=== PATIENT | female | born 1945 | race Caucasian/White ===

== ENCOUNTER 2020-10-19 09:48 | Emergency (ER) | payer MEDICARE, OTHER ==
[~2020-10-19] VITALS: Ht 157.5 cm; Wt 60.3 kg
[~2020-10-19 09:48] MED LIST: ANUSOL HC SUPP1 SUPP PR; ASPIR 8181 MG PO; B12 PO; BENICAR 20 MG T20 MG PO; BYSTOLIC5 MG PO; CATAPRES 0.1MG0.1 MG PO; CLONAZEPAM0.25 MG PO; COMPAZINE 10MG10 MG PO; COQ-10100 MG PO; COQ1050 MG PO; CRESTOR20 MG PO; CYANOCOBAL1000 MCG/1 IM; DEXILANT60 MG PO; DRIZALMA SPRINK60 MG PO; ECOTRIN81 MG PO; FLOMAX0.4 MG PO; FLONASE 0.05% N16 GM; FORTEO 250250 MCG/ML SC; GRALISE1 EACH PO; KETOCONAZOLE TD; KLONOPIN TAB 00.5 MG PO; LEVOCETIRIZINE D5 MG PO; LEXAPRO20 MG PO; LINZESS290 MCG PO; LINZESS72 MCG PO; MEGESTROL400 MG/11 PO; MIRALAX17 GM PO; MOVANTIK25 MG PO; MUCINEX600 MG PO; PEPCID20 MG PO; POTASSIUM CHLO10 ME2 PO; POTASSIUM CITR10 MEQ PO; PROBIOTIC1 EAC1 PO; PROMETHAZINE HC25 M1 PO; QUETIAPINE FUMA25 MG PO; REXULTI PO; SOLIFENACIN SUCC5 MG PO; TIZANIDINE HCL2 MG PO; TYLENOL #3 PO; TYLENOL 500 MG500 MG PO; TYLENOL WITH C1 EACH PO; VESICARE5 MG PO; VITAMIN D PO; ZANAFLEX 4 MG TA4 MG GT; ZANTAC; ZOFRAN4 MG PO; ZYRTEC10 M3 PO; [UNRECOGNIZED DRUG - CODE] PO; [UNRECOGNIZED DRUG - OTHER]
[2020-10-19 11:00] LABS: HEMOGLOBIN 13.2 gm/dl (12.3-15.3); RED BLOOD COUNT 4.05 M/UL (4.00-5.10); WHITE BLOOD COUNT 5.5 K/UL (4.5-11.0)
[2020-10-19 11:37] LABS: BUN/CREATININE RATIO 40 (0-10)
[2020-10-19] MEDS ORDERED: AUGMENTIN 875-1 EACH PO (14:02)
== END 2020-10-19 15:14 | disposition home or self-care (01) ==
LOC: ER1 09:48
PROVIDERS: Urology
DX: U07.1 COVID-19 (principal); J02.0 Streptococcal pharyngitis; I10 Essential (primary) hypertension; Z85.3 Personal history of malignant neoplasm of breast; Z90.710 Acquired absence of both cervix and uterus
CPT/HCPCS: 71045; 80053; 82550; 82553; 83874; 84484; 85025; 87081; 87880; 93005; 99285; M0239

== ENCOUNTER → 2021-06-09 | Outpatient (CLI) | payer MEDICARE, OTHER ==
[~2021-06-09] MED LIST changes: +AUGMENTIN 875-1 EACH PO
== END ==
LOC: KOH-I 11:10
DX: M51.16 Intervertebral disc disorders with radiculopathy, lumbar region (principal); R10.9 Unspecified abdominal pain; N20.0 Calculus of kidney; K59.00 Constipation, unspecified; M51.17 Intervertebral disc disorders with radiculopathy, lumbosacral region
CPT/HCPCS: 72100; 74018

== ENCOUNTER → 2021-09-17 | Outpatient (CLI) | payer MEDICARE, OTHER ==
[2021-09-17 16:02] LABS: HEMOGLOBIN 13.6 gm/dl (12.3-15.3); RED BLOOD COUNT 4.34 M/UL (4.00-5.10); WHITE BLOOD COUNT 9.2 K/UL (4.5-11.0)
[2021-09-18 07:10] LABS: ALKALINE PHOSPHATASE, S 84 IU/L (44-121); ALT (SGPT) 9 IU/L (0-32); AST (SGOT) 19 IU/L (0-40); BILIRUBIN, TOTAL 0.5 mg/dL (0.0-1.2); BUN 13 mg/dL (8-27); BUN/CREATININE RATIO 14 (12-28); CALCIUM, SERUM 9.7 mg/dL (8.7-10.3); CARBON DIOXIDE, TOTAL 20 mmol/L (20-29); CHLORIDE, SERUM 100 mmol/L (96-106); CHOLESTEROL, TOTAL 206 mg/dL (100-199); CREATININE, SERUM 0.95 mg/dL (0.57-1.00); EGFR IF AFRICN AM 68 (>59); EGFR IF NONAFRICN AM 59 (>59); GLOBULIN, TOTAL 2.3 g/dL (1.5-4.5); GLUCOSE, SERUM 89 mg/dL (65-99); HDL CHOLESTEROL 91 mg/dL (>39); LDL CHOLESTEROL CALC 98 mg/dL (0-99); LDL/HDL RATIO 1.1 ratio (0.0-3.2); POTASSIUM, SERUM 4.7 mmol/L (3.5-5.2); PROTEIN, TOTAL, SERUM 6.8 g/dL (6.0-8.5); SODIUM, SERUM 135 mmol/L (134-144); T. CHOL/HDL RATIO 2.3 ratio (0.0-4.4); TRIGLYCERIDES 100 mg/dL (0-149)
[2021-09-18 08:13] LABS: CREATININE, URINE 96.3 mg/dL (Not Estab.); VITAMIN D, 25-HYDROXY 32.4 ng/mL (30.0-100.0)
[2021-09-18 09:13] LABS: SARS COV-2 SEMI-QUANT IGG >800.0 AU/mL (Neg <13.0); SARS COV-2 SPIKE AB INTERP Positive (.)
[2021-09-18 13:13] LABS: SARS COV-2 IGM AB Negative (Negative)
[2021-09-18 21:08] LABS: SARS COV-2 IGA AB Negative (Negative)
== END ==
LOC: LAB 14:27
PROVIDERS: Nurse Practitioner Family
DX: I12.9 Hypertensive chronic kidney disease with stage 1 through stage 4 chronic kidney disease, or unspecified chronic kidney disease (principal); U09.9 Post COVID-19 condition, unspecified; R53.83 Other fatigue; J30.9 Allergic rhinitis, unspecified; D64.9 Anemia, unspecified; N18.9 Chronic kidney disease, unspecified; E03.9 Hypothyroidism, unspecified; E78.5 Hyperlipidemia, unspecified; R41.3 Other amnesia; R26.81 Unsteadiness on feet; E53.8 Deficiency of other specified B group vitamins; E83.52 Hypercalcemia; F41.9 Anxiety disorder, unspecified
CPT/HCPCS: 36415; 80053; 80061; 81001; 82043; 82570; 82607; 84439; 84443; 85025; 86769

== ENCOUNTER → 2022-02-03 | Outpatient (CLI) | payer MEDICARE, OTHER | LOC: EXRD 13:03 | DX: R06.02 Shortness of breath (principal) | CPT/HCPCS: 71046 ==

== ENCOUNTER → 2022-03-09 | Outpatient (CLI) | payer MEDICARE, OTHER | LOC: EMI 12:59 | DX: H53.2 Diplopia (principal); R90.82 White matter disease, unspecified | CPT/HCPCS: 70551 ==